=== PATIENT | male | born 1980 | race Caucasian/White ===

== ENCOUNTER 2023-04-10 14:43 | Emergency (ER) | payer SELFPAY ==
[~2023-04-10] VITALS: Ht 175.3 cm; Wt 98.0 kg
[2023-04-10] MEDS ORDERED: NITROGLYCERIN 0.4MG TABLET SL SL PRN (15:15)
[2023-04-10] MEDS ORDERED: ASPIRIN 81MG TABLET PO ONE (15:15)
[2023-04-10 16:23] LABS: BASOPHILS % 0.4 % (0.0-2.0); HEMATOCRIT. 35.2 % (42.0-52.0); HEMOGLOBIN. 12.6 g/dL (14.0-18.0); LYMPHOCYTES % 17.8 % (20.0-50.0); MEAN CORPUSCULAR HEMOGLOBIN 44.6 pg (28.0-32.0); MEAN CORPUSCULAR VOLUME 124.9 fL (80.0-94.0); MONOCYTES % 4.8 % (2.0-8.0); PLATELET 239 x1000/uL (130-400); RED BLOOD CELL COUNT 2.82 mill/uL (4.7-6.1)
[2023-04-10 16:37] LABS: CHLORIDE 106 mEq/L (98-107)
[2023-04-10 16:45] LABS: ETHANOL BLOOD < 10 mg/dL (-10)
[2023-04-10] MEDS ORDERED: ASPIRIN 81MG TABLET PO NR (19:00)
[2023-04-10 19:05] VITALS: BP 127/77
[2023-04-10 19:05] LABS: PLATELET ESTIMATE NORMAL
== END 2023-04-10 19:20 | disposition home or self-care (01) ==
LOC: ER 15:22
DX: R07.89 Other chest pain (principal)
CPT/HCPCS: 36415; 71045; 80053; 80320; 83880; 84484; 85025; 93005; 99285; Z7610; G0480